=== PATIENT | female | born 1995 | race Caucasian/White ===

== ENCOUNTER 2021-06-03 14:07 | Observation (INO) | payer OTHER, SELFPAY ==
--- NOTE | ~2021-06-03 | US_ITS ---
US OB BPP wo non-stress DATE: 06/03/2021 17:02 INDICATION: heart rate decelerations TECHNIQUE: Real-time imaging and Doppler analysis COMPARISON: None FINDINGS: Live keane intrauterine gestation, fetus in longitudinal lie, vertex presentation. Feta l heart rate of 131 bpm. Fundal placenta. Subjectively normal amount of amniotic fluid. BIOPHYSICAL PROFILE reported by gastrointestinal technician: breathin out of 2 movement: 2 out of 2 tone: 2 out of 2 Amniotic fluid pocket: 2 out of 2 Total score: 8 out of 8 IMPRESSION: Normal biophysical profile of 8 out of 8 Reviewed, dictated and finalized at Location [facility]. Reviewed, dictated and finalized at location A.
[2021-06-03 16:00] VITALS: BP 112/67; PULSE 94
[2021-06-03] MEDS: NIFEdipine 30 MG TAB.ER.24 PO (16:34)
--- NOTE | 2021-06-03 17:42 | OBADM ---
This patient, Mai Ruiz, admitted to the OB room OB Post 117 for observation. Patient/family oriented to hospital policies and general routines including ID bracelet, bed and alarms, visiting hours, pain management, procedures, bathroom and other care routines, personal items, smoking policy, room service/diet, and visiting hours. Patient/Family are encouraged to report perceived risks to care and to ask questions if they do not understand what they are told or what they should do.
--- NOTE | 2021-06-08 07:19 | P.PNOB_ITS ---
OB - Triage/Final Diagnosis Visit Information Date of evaluation: 06/03/21 Reason for evaluation: threatened labor Comments/Additional reasons for admission: I have assessed the risk for this patient, Mai Ruiz, and determined that she would benefit from ob servation care.
== END 2021-06-03 19:15 | disposition home or self-care (01) ==
PROVIDERS: Admitting Provider Obstetrics & Gynecology; PCP Internal Medicine; Visit Provider Obstetrics & Gynecology
DX: O47.03 False labor before 37 completed weeks of gestation, third trimester (principal); Z3A.33 33 weeks gestation of pregnancy
CPT/HCPCS: 76819; A9270; G0378; G0379

== ENCOUNTER 2021-06-25 14:53 | Outpatient (RCR) | payer OTHER, SELFPAY ==
[2021-06-25 15:27] VITALS: BP 123/70; PULSE 112
== END 2021-07-18 07:29 | disposition home or self-care (01) ==
LOC: ANHOBOP 14:53
PROVIDERS: PCP Internal Medicine; Visit Provider Obstetrics & Gynecology
DX: O24.419 Gestational diabetes mellitus in pregnancy, unspecified control (principal); O36.8930 Maternal care for other specified fetal problems, third trimester, not applicable or unspecified; Z3A.36 36 weeks gestation of pregnancy
CPT/HCPCS: 59025

== ENCOUNTER 2021-06-27 06:26 | Inpatient (IN) | payer OTHER, SELFPAY ==
[2021-06-27] VITALS (63 sets, daily range): BP systolic 100–143; BP diastolic 50–102; PULSE 77–158; RESP 16–20; TEMP 36.8–37.3; O2SAT 96–100; BMI 35.7
--- NOTE | 2021-06-27 06:44 | LDADM ---
This patient, Mai Ruiz, was admitted to Labor/Delivery/Recovery 107 on 06/27/21 at 06:26. Plans for labor, pain management and were discussed with patient. Patient/family oriented to hospital policies and general routines including ID bracelet, bed and alarms, visiting hours, pain management, procedures, bathroom and other care routines, personal items, smoking policy, room service/diet and guest tray routines, security routines, and visiting hours. Patient/Family are encouraged to report perceived risks to care and to ask questions if they do not understand what they are told or what they should do. See OBIX for further documentation.
[2021-06-27 07:30] LABS: Glucose Point of Care 83 mg/dl (65-105)
[2021-06-27 07:31] LABS: Basophils Percent Auto 0.3 % (0.2-1.2); Eosinophils Percent Auto 0.5 % (0-4.4); Hematocrit 36.9 % (37.0-47.0); Hemoglobin 12.3 g/dL (12.0-15.0); Immature Granulocyte Absolute 0.03 K/mm3 (0.00-0.031); Immature Granulocyte Percent A 0.4 % (0-0.5); Lymphocytes Absolute Auto 1.79 K/mm3 (0.9-3.2); Lymphocytes Percent Auto 23.3 % (18.3-44.2); Mean Corpuscular HGB Conc 33.3 g/dl (32-36); Mean Corpuscular Hemoglobin 30.8 pg (26-34); Mean Corpuscular Volume 92.5 fl (80-100); Mean Platelet Volume 10.2 fl (7.4-10.4); Monocytes Absolute Auto 0.5 K/mm3 (0.1-0.6); Monocytes Percent Auto 6.5 % (2.6-8.5); Neutrophils Absolute Auto 5.3 K/mm3 (1.3-6.7); Platelet Count Result 191 k/mm3 (150-375); Red Blood Count 3.99 M/mm3 (4.2-5.4); Red Cell Distribution Width 13.9 % (11.5-14.5); White Blood Count 7.7 K/mm3 (4.5-10.0)
[2021-06-27] MEDS: OXYTOCIN 30 UNITS/NS 500 ML 30 UNITS/500 ML BAG IV CONT (07:34)
[2021-06-27] MEDS: LACTATED RINGERS 1,000 ML 125 ML IV CONT (07:34)
--- NOTE | 2021-06-27 07:53 | WPDOBADMIT ---
Obstetrics - Admit Note Admission Note: 25 y/o @ 37 weeks gestation here for induction of labor d/t GHTN. has also been complicated by Cholestasis and diet controlled GDM.Cervix 3/thick/-2. Arom small amount of clear fluid. record reviewed. No pertinent additions to the history and/or any subsequent changes in the physical findings that are not consistent with the expected course of the were found. Additions to the history and/or subsequent changes in the physical findings follow. None.
--- NOTE | 2021-06-27 09:54 | WPDANESEPP ---
Anes - Eval Pre Procedure Date/Time: 06/27/21 09:54 Pre Op Diagnosis: Induction of Labor Patient Data Age: 25 Gender: F Height: 1.7 m Weight: 103.5 kg Last Vital Signs Temp 37.2 C 06/27/21 07:51 Pulse 100 06/27/21 09:46 BP 121/80 06/27/21 09:46 Allergies Allergy/AdvReac Type Severity Reaction Status Date / Time No Known Allergies Allergy Unverified 12/20/18 13:48 Home Medications Medication Instructions Recorded Confirmed Type PNV cmb#95-ferrous fumarate-FA 1 tablet PO DAILY 06/20/21 06/20/21 History [] ferrous sulfate [Iron (ferrous 325 mg PO DAILY 06/20/21 06/20/21 History sulfate)] ursodiol 300 mg PO BID 06/20/21 06/20/21 History Laboratory Tests 06/27/21 06/27/21 06/27/21 07:17 07:19 07:19 WBC 7.7 K/mm3 K/mm3 (4.5-10.0) RBC 3.99 M/mm3 L M/mm3 (4.2-5.4) Hgb 12.3 g/dL g/dL (12.0-15.0) Hct 36.9 % L % (37.0-47.0) MCV 92.5 fl fl (80-100) MCH 30.8 pg pg (26-34) MCHC 33.3 g/dl g/dl (32-36) RDW 13.9 % % (11.5-14.5) Plt Count 191 k/mm3 k/mm3 (150-375) MPV 10.2 fl fl (7.4-10.4) Immature Gran % (Auto) 0.4 % % (0-0.5) Neut % (Auto) 69.0 % % (45.5-73.1) Lymph % (Auto) 23.3 % % (18.3-44.2) Gillespie % (Auto) 6.5 % % (2.6-8.5) Eos % (Auto) 0.5 % % (0-4.4) Baso % (Auto) 0.3 % % (0.2-1.2) Lymph # (Auto) 1.79 K/mm3 K/mm3 (0.9-3.2) Gillespie # (Auto) 0.5 K/mm3 K/mm3 (0.1-0.6) Eos # (Auto) 0.0 K/mm3 K/mm3 (0-0.3) Baso # (Auto) 0.0 K/mm3 K/mm3 (0.0-0.1) Abs Immat Gran (auto) 0.03 K/mm3 K/mm3 (0.00-0.031) Absolute Neuts (auto) 5.3 K/mm3 K/mm3 (1.3-6.7) Absolute Nucleated RBC 0.0 K/mm3 K/mm3 (0.0-0.012) Nucleated RBC % 0.0 % % (0.0-0.2) POC Capillary Glucose 83 mg/dl mg/dl (65-105) RPR Pending Blood Type Antibody Screen 06/27/21 07:19 WBC RBC Hgb Hct MCV MCH MCHC RDW Plt Count MPV Immature Gran % (Auto) Neut % (Auto) Lymph % (Auto) Gillespie % (Auto) Eos % (Auto) Baso % (Auto) Lymph # (Auto) Gillespie # (Auto) Eos # (Auto) Baso # (Auto) Abs Immat Gran (auto) Absolute Neuts (auto) Absolute Nucleated RBC Nucleated RBC % POC Capillary Glucose RPR Blood Type O Positive Antibody Screen Negative Patient hx anesthesia problems: none Family hx anesthesia problems: none PMFSH Past Medical History Medical History (Updated 06/27/21 @ 09:57 by Orquidea Moeller CRNA) Cholestasis Diabetes in Hypertension Obese Family History Family History Grandparent Family history of primary malignant neoplasm of liver Family history of Alzheimer's disease Mother Patient's mother is in good health Social History Social History Smoking status: Never smoker Alcohol intake: current Substance use: never Spiritual care concerns: No Exam Day of Procedure 06/27/21 09:54 Patient weight: obese Heart: regular rate and rhythm Lungs: normal air movement Airway: Mallampati scale class II Neurological: alert and oriented
[2021-06-27 09:56] LABS: Glucose Point of Care 107 mg/dl (65-105)
--- NOTE | 2021-06-27 12:18 | PM.OBPRVD ---
OB - Delivery Note Procedure Delivery date: 06/27/21 events: Gestational Diabetes and Induced HTN Intrapartal events: None Induction method: per pitocin protocol Delivery monitor: external FHT and external uterine Route of delivery: Episiotomy description: None Laceration Description: Perineal - 2nd Degree Delivery repair: vicryl Specimen: Yes Quantitative Blood Loss (ml): 181 Anesthesia type: Epidural [place] Baby Date of : 06/27/21 Time of : 11:49 Weeks of gestation at delivery: 37 gender: Female presentation: vertex position: Left Occiput Anterior Placenta delivery description: Spontaneous cord vessel description: Delayed Cord Clamping Narrative: Mother and baby in stable condition. Cord gasses collected and handed off to staff.
[2021-06-27] MEDS: OXYTOCIN 30 UNITS/NS 500 ML 30 UNITS/500 ML BAG 125 UNITS IV CONT (12:40)
[2021-06-27] MEDS: BENZOCAINE 20% AER SPR (*SP) 56 GM CAN 1 SPRAY TOPICAL (14:26)
[2021-06-27] MEDS: WITCH HAZEL 40 PADS 1 PAD TOPICAL (14:26)
--- NOTE | 2021-06-27 14:30 | PC.NURSE ---
Patient transferred to post room # 285 per wheelchair. Support person present. Oriented to unit, room, information board, rooming in, admission packet and security measures. Patient verbalizes understanding.
[2021-06-27] MEDS: IBUPROFEN 600 MG TABLET PO ×2 (16:54→22:35)
[2021-06-27] MEDS: LANOLIN (LANSINOH) 7.5 GM CREAM 1 APPLIC TOPICAL (16:55)
[2021-06-27] MEDS: DOCUSATE SODIUM 100 MG CAPSULE PO (16:55)
[2021-06-28] VITALS (8 sets, daily range): BP systolic 100–120; BP diastolic 63–81; PULSE 71–83; RESP 13–18; TEMP 36.5–37.3; O2SAT 97–100
[2021-06-28] MEDS: ACETAMINOPHEN 325 MG TABLET 650 MG PO ×2 (00:14→09:56)
[2021-06-28] MEDS: IBUPROFEN 600 MG TABLET PO ×3 (04:37→21:02)
[2021-06-28 05:18] LABS: Hemoglobin 11.2 g/dL (12.0-15.0)
[2021-06-28 05:38] LABS: Glucose 78 mg/dL (65-110)
--- NOTE | 2021-06-28 07:46 | PM.OBPNVD ---
OB - PN: Subj Subjective Date/time seen: 06/28/21 07:46 Patient comments: no complaints baby status: doing well OB - PN: Obj Data Labs CBC & Chem 7: 06/28/21 04:30 06/28/21 04:30 Labs: Laboratory Results - last 24 hr 06/27/21 06/27/21 06/28/21 07:19 09:47 04:30 Hgb 11.2 L Hct 35.0 L Glucose POC Capillary Glucose 107 H Blood Type O Positive Antibody Screen Negative 06/28/21 04:30 Hgb Hct Glucose 78 POC Capillary Glucose Blood Type Antibody Screen OB - PN A/P Plan day: 1 Plan: routine care Time Spent With Patient Time: Total time spent is greater than 50% in coordination of care (as documented) at patient's floor/unit and/or counseling patient: Time with patient: less than 15 minutes Review of Systems Review of Systems: All systems reviewed & are unremarkable except as noted in HPI and below Exam Narrative: Fundus firm and vaginal flow controlled. No lower ext redness, warmth, or edema. Negative homans. Denies h/a, v/d or e/p. Reflexes normal. Const: General: comfortable Chest: Breast/axilla inspection: normal inspection of the breasts Resp: Effort & Inspection: normal respiratory effort Cardio: Rate: regular rate GI: GI Palp: Yes Soft to palpation Psych: Appearance: grossly normal Affect: normal affect Attitude: cooperative Thought content: Yes Normal thought content present Judgement: Good judgement present (Psych)
[2021-06-28 09:46] LABS: Rapid Plasma Reagin Non-Reactive (NonReactive)
[2021-06-28] MEDS: WITCH HAZEL 40 PADS 1 PAD TOPICAL (09:56)
[2021-06-28] MEDS: LANOLIN (LANSINOH) 7.5 GM CREAM 1 APPLIC TOPICAL (09:57)
[2021-06-28] MEDS: DOCUSATE SODIUM 100 MG CAPSULE PO (09:57)
[2021-06-28] MEDS: MULTIVIT/MIN/PREN/FOL AC/IRON TABLET 1 TAB PO (09:57)
--- NOTE | 2021-06-28 10:15 | PC.NURSE ---
Mother called out for assist with feeding, reporting tenderness with latch. . is able to freely thrust tongue past gum ridge and flange both lips. Skin is intact on both nipples, redness noted bilaterally and a small ridge line from shallow latching. Nipple care reviewed of lanolin after feedings, warm compresses as needed. Reviewed feeding cues, frequencies, duration of feedings, feeding elimination flow sheet, and signs of adequate intake. Demonstrated stimulation techniques to wake infant for feeding. Assisted with to breast. Reviewed positioning/alignment in cross cradle, holding breast in ?U? hold and guided asymmetrical latch on. Reviewed rational for each. Infant able to latch correctly within a few attempts. Infant nursed eagerly with steady draws and occasional swallowing noted, some pausing noted. Reviewed signs of a correct latch, effective nursing and suck swallow ratio. Suggested mother stimulate while feeding to increase stimulate, increase intake and to assist with maintaining deep latch. would slip to shallow latch causing tenderness. Demonstrated how to adjust latch more deeply while feeding if needed. Mother reports she can feel the difference in latch with no/less tenderness. Instructed mother to call out for RN assistance if she is unable to latch infant for feeding or she has discomfort with nursing. Instructed feeding should be initiated three hours from start of last feeding or if feeding cues are noted before. Mother voiced understanding of information shared.
--- NOTE | 2021-06-28 10:49 | WPDANLDPN2 ---
Anes-Prog Note L&D Date/Time: 06/28/21 10:49 Comfortable throughout: labor and delivery Neuraxial method: epidural Epidural/Spinal procedure site: clean & non-tender Neuro status: Neuro function grossly intact. Cardiovascular status: normal Respiratory status: normal Airway patency: baseline Mental status: baseline Post-Op hydration status: normal Vital Signs: Last Vital Signs Temp 37.3 C 06/28/21 07:40 Pulse 71 06/28/21 07:40 Resp 18 06/28/21 07:40 BP 111/73 06/28/21 07:40 Pulse Ox 100 06/28/21 07:40 Pain score (VAS): 0 I/O: Intake & Output 06/27/21 06/28/21 06/28/21 23:59 07:59 15:59 Intake Total 600 800 Output Total 1000 Balance 600 -200 Post-procedural complaints: none Patient feedback: Patient satisfied with anesthetic care.
[2021-06-29 00:50] VITALS: BP 119/78; PULSE 75; RESP 12; TEMP 36.5; O2SAT 100
[2021-06-29 05:00] VITALS: BP 116/70
--- NOTE | 2021-06-29 07:39 | PM.OBPNVD ---
OB - PN: Subj Subjective Date/time seen: 06/29/21 07:39 Patient comments: no complaints baby status: doing well OB - PN: Obj Data Labs CBC & Chem 7: 06/28/21 04:30 06/28/21 04:30 Labs: Laboratory Results - last 24 hr 06/27/21 07:19 RPR Non-reactive OB - PN A/P Plan day: 2 Plan: routine care and discharge home Time Spent With Patient Time: Total time spent is greater than 50% in coordination of care (as documented) at patient's floor/unit and/or counseling patient: Review of Systems Review of Systems: All systems reviewed & are unremarkable except as noted in HPI and below Exam Const: General: cooperative and healthy appearing Orientation/consciousness: oriented to person and patient oriented x3 Psych: Thought process: Normal thought process present Thought content: Yes Normal thought content present Judgement: Good judgement present (Psych)
--- NOTE | 2021-06-29 07:40 | PM.OBDSVD ---
DS: Admitting Diagnosis Discharge Date 06/29/2021 Admitting Diagnosis labor OB - DS: Summary OB Procedures : None OB Procedures Intrapartum: Spontaneous Vag Delivery OB Procedures: : None Time Spent with Patient Time attestation: Total time spent providing and/or coordinating discharge services: DS: Data Data Completed and Pending Pending studies at discharge: Pending at discharge 06/27/21 13:04 Surgical [PTH] Routine Labs on day of discharge: Labs from last 24 hours 06/27/21 07:19 RPR Non-reactive Discharge Plan Discharge Attending physician on discharge: Kehinde Sanchez Consulting providers: Rupal Parks ; Fauzia Coelho Discharging Clinician: Fauzia Coelho Patient Disposition: Home, Self-Care Activity: pelvic rest Diet: regular Discharge Instructions: Education: Mom and Baby Guide Given to: Mother Follow-Up: Call your delivering provider's office for an appointment to be seen in: 1 Week Mom and baby should come to the [facility] for the follow-up appointment. Appointment Date/Time: July 02, 2021 at 11:00 am What to expect at your follow-up visit: Blood Pressure Check Call [phone] if you are unable to keep your appointment time. BREAST CARE: * Wear a snug supportive bra. * For engorgement discomfort: Breast Feeding: * Apply warm moist washcloths * Express milk as needed to relieve engorgement * Wear loose clothing Bottle Feeding: * May apply ice packs * For sore nipples: * Identify correct latch-on * Apply warm moist washcloths before and after nursing * Air dry nipples after nursing * May apply Lansinoh cream to nipples PERINEAL CARE: * Until bleeding stops, use your garfield bottle after urinating * Change your pad frequently throughout the day * You may take sitz baths several times a day (fill your bathtub with warm water and soak for 20 minutes.) Do NOT bathe in the water * No tub baths until seen by your physician - You may shower ACTIVITY: * Rest as much as possible. * Do not exercise or lift anything heavier than your baby (such as laundry or other children.) * Avoid stairs or driving as much as possible. * Do not put anything into the vagina. No douching, tampons, or sexual activity until seen by physician. NOTIFY PHYSICIAN IF YOU HAVE ANY QUESTIONS OR IF ANY OF THE FOLLOWING SYMPTOMS OCCUR: * If your perineum becomes red, swollen, or more painful than what you have experienced in the hospital. * If your vaginal bleeding becomes foul smelling. * If your vaginal bleeding becomes more heavy than a period or if your bleeding changes from pink to bright red. However, you may pass an occasional walnut-sized clot once or twice for the first week . * If you experience a sharp, shooting pain in you calves. * If you discover a hard, reddened area on your breast or if you experience flu-like symptoms. * If you have a fever of 100.4 or greater DIET: * Eat regular, well-balanced meals. * Drink plenty of fluids daily. If , drink to thirst. Patient Instructions: Antibiotic Form Stand Alone Forms: General Discharge Information Follow-up/Referrals: Rupal Parks CNM [Certified Nurse Gymnastics Instructor] - 4 Weeks Discharge Medications: New acetaminophen [Mapap (acetaminophen)] 325 mg Tablet 650 mg PO Q6H PRN (Reason: Mild Pain (1-3) Or Headache) RF: 0 Dermoplast (with menthol) 20-0.5 % Aerosol 1 spray topical PRN PRN (Reason: Perineal Discomfort) RF: 0 dibucaine 1 % Ointment 1 applic topical PRN PRN (Reason: Hemorrhoids) RF: 0 docusate sodium 100 mg Capsule 100 mg PO BID PRN (Reason: Constipation) RF: 0 ibuprofen 600 mg Tablet 600 mg PO Q6H PRN (Reason: Cramping) RF: 0 Preparation H (Timoteo Downey) 50 % Pads, Medicated 1 pad topical PRN PRN (Reason: Perineal D
--- NOTE | 2021-06-29 08:00 | PC.NURSE ---
PT introductions made and plan of care discussed per post , pain ,management, breast feeding, daily care activities and pending discharge to home. PT and spouse both recipients of such instructions and education through out the shift. No barriers to learning identified. PT received such instructions per one to one discussion, mom baby care guide and demonstrations. PT verbalized understanding of such care.
[2021-06-29 08:30] VITALS: PULSE 84; RESP 18; O2SAT 99
[2021-06-29] MEDS: DOCUSATE SODIUM 100 MG CAPSULE PO (08:42)
[2021-06-29] MEDS: MULTIVIT/MIN/PREN/FOL AC/IRON TABLET 1 TAB PO (08:42)
[2021-06-29] MEDS: IBUPROFEN 600 MG TABLET PO (08:43)
[2021-06-29 09:14] VITALS: BP 111/74; PULSE 84; RESP 18; TEMP 36.5; O2SAT 99
--- NOTE | 2021-06-29 09:15 | PC.NURSE ---
Consult with pt., mother is able to independently latch infant with appropriate positioning/alignment with slight tenderness which she feels is improving with deeper latch. Mother has small red areas to both nipples from shallow latch, which is healing well from previous day. Mother reports infant eagerly latches on first attempt with nursing consistently while at breast. Mother is feeding as required and waking to feed if needed. has had at least 8 effective feedings in the past 24 hours, and is currently meeting outcomes for weight, output, jaundice and feeding frequencies. Mother states she feels confident to continue effective at home. Reviewed transition to breast milk, signs of adequate intake, and engorgement/relief. Instructed to call ICP if intake/output less than required. Reviewed regular medications mother is taking. Information provided per Melanie. Reviewed community resources on the [employer] website and in the Mom/Baby guide. Information on outpatient services provided. Mother has no further questions at this time. Offered to assist mother with next feeding due to nipple tenderness. Stressed good nipple care of lanolin and warm compresses to nipples several times per day until resolved. Instructed feeding should be initiated three hours from start of last feeding or if feeding cues are noted before until seen by ICP. Mother voiced understanding of information shared.
--- NOTE | 2021-06-29 10:15 | PC.NURSE ---
Patient viewed the discharge video Mother & Baby Care, The First Two Weeks . Patient was given the opportunity and encouraged to ask questions. Patient verbalized understanding of information shared and has been given the mother/baby guide for home reference. PT received discharge instructions per protocol and verbalized understanding of such instructions.
--- NOTE | 2021-06-29 10:48 | PC.NURSE ---
PT discharged to home ambulatory accompanied by spouse and and taken to waiting car. Follow up appts confirmed
--- NOTE | 2021-06-29 12:16 | PCCCNOTE ---
Care Coordination: Recvd referral regarding pt. testing Positive for THC in December. Pt. was not urine drug screened upon admission here. Baby's UDS was negative and meconium is pending. Pt. reports she has not used since her positive drug test. Pt. reports she and will live with GOPAL Aranda(who is at bedside) and their 2.5 year old son at home in [place]. Pt. reports they have support from both sides of their families. Pt. reports having all necessary baby supplies and not lacking anything. Pt. reports they are both working and overly resourced to qualify for WIC or Food [place]. Pt. denies any prior involvement with DCFS. resources provided. KYREE arce.
[2021-07-02 11:25] VITALS: BP 135/85; PULSE 88; RESP 20; TEMP 36.6; O2SAT 99
== END 2021-06-29 10:48 | disposition home or self-care (01) | DRG 805 ==
LOC: ANHLDR 06:31 → ANHOB2 14:39
PROVIDERS: Advanced Practice Midwife; Admitting Provider Obstetrics & Gynecology; PCP Internal Medicine; Visit Provider Obstetrics & Gynecology
DX: O13.4 Gestational [pregnancy-induced] hypertension without significant proteinuria, complicating childbirth (principal); K83.1 Obstruction of bile duct; Z37.0 Single live birth; Z3A.37 37 weeks gestation of pregnancy; O24.420 Gestational diabetes mellitus in childbirth, diet controlled; O70.1 Second degree perineal laceration during delivery; O99.214 Obesity complicating childbirth; E66.9 Obesity, unspecified; O26.62 Liver and biliary tract disorders in childbirth
CPT/HCPCS: 36415; 82947; 82948; 85014; 85018; 85025; 86592; 86850; 86900; 86901; 88307; A9270; J2590; J2795; J7120

== ENCOUNTER 2021-08-13 14:50 | Observation (INO) | payer OTHER, SELFPAY ==
--- NOTE | ~2021-08-13 | US_ITS ---
US right upper quadrant INDICATION: Right upper quadrant pain PROCEDURE: Realtime right upper abdominal ultrasound. COMPARISON: No prior studies for comparison. FINDINGS: The pancreas is normal without focal mass or pancreatic ductal dilation. Liver echotexture is normal without focal mass or intrahepatic biliary dilatation. There is normal directional flow i n the portal vein. There are gallstones. There is subtle gallbladder wall thickening with pericholecystic fluid. Common bile duct measures 4 mm. Positive sonographic Rodrigues's sign. IMPRESSION: 1: Cholelithiasis with mild gallbladder wall thickening and pericholecystic fluid. Positive sonograph ic Rodrigues's sign. This constellation of findings is compatible with acute cholecystitis. Clinically c orrelate. Reviewed, dictated and finalized at location A. IMPRESSION: 1: Cholelithiasis with mild gallbladder wall thickening and pericholecystic flu id. Positive sonographic Rodrigues's sign. This constellation of findings is michael tible with acute cholecystitis. Clinically correlate.
[2021-08-13 14:52] VITALS: RESP 17
[2021-08-13 14:56] VITALS: BP 147/91; PULSE 69; RESP 18; TEMP 36.8; O2SAT 99
--- NOTE | 2021-08-13 15:17 | ECG_ITS ---
Measurements Intervals [place] Rate: 66 P: 10 AR: 127 QRS: 32 QRSD: 86 T: 18 QT: 415 QTc: 438 Interpretive Statements SINUS RHYTHM BASELINE WANDER- III, AVF NORMAL ECG Electronically Signed On 08-13-2021 15:59:45 CDT by Mynor Ansari D.O.
[2021-08-13] MEDS: SODIUM CHLORIDE 0.9% IV 1,000 ML 999 ML IV CONT (15:43)
[2021-08-13 15:51] LABS: Basophils Percent Auto 0.3 % (0.2-1.2); Eosinophils Percent Auto 0.5 % (0-4.4); Hematocrit 40.5 % (37.0-47.0); Hemoglobin 13.4 g/dL (12.0-15.0); Immature Granulocyte Absolute 0.03 K/mm3 (0.00-0.031); Immature Granulocyte Percent A 0.3 % (0-0.5); Lymphocytes Absolute Auto 2.89 K/mm3 (0.9-3.2); Lymphocytes Percent Auto 33.6 % (18.3-44.2); Mean Corpuscular HGB Conc 33.1 g/dl (32-36); Mean Corpuscular Hemoglobin 30.5 pg (26-34); Mean Platelet Volume 10.7 fl (7.4-10.4); Monocytes Absolute Auto 0.4 K/mm3 (0.1-0.6); Monocytes Percent Auto 4.9 % (2.6-8.5); Neutrophils Absolute Auto 5.2 K/mm3 (1.3-6.7); Neutrophils Percent Auto 60.4 % (45.5-73.1); Platelet Count Result 213 k/mm3 (150-375); Red Cell Distribution Width 13.5 % (11.5-14.5); White Blood Count 8.6 K/mm3 (4.5-10.0)
--- NOTE | 2021-08-13 16:01 | ED.BACK ---
HPI - Back Pain/Injury General Chief Complaint: Back Pain/Injury Stated Complaint: BACK PAIN Time Seen by Provider: 08/13/21 15:10 Source: patient History of Present Illness HPI Narrative: Patient presents with sudden onset upper back pain around 11:00 today. Pain was sharp, constant, no clear aggravating or alleviating factors. She reports her pain was associated with upper abdominal pain as well. She denies fevers, cough, congestion. She reports she is feeling much improved continues to have upper abdominal pain. She denies any nausea vomiting or diarrhea. Reports she gave 6 weeks ago had a history of gestational diabetes and hypertension denies prior abdominal surgeries. Related Data Home Medications Medication Instructions Recorded Confirmed No Home Medications 08/13/21 08/13/21 Allergies Allergy/AdvReac Type Severity Reaction Status Date / Time No Known Allergies Allergy Unverified 08/13/21 14:57 Review of Systems Review of Systems: CONSTITUTIONAL: Denies fever, chills, or sweats. EYES: Denies visual changes, redness, or discharge. ENT: Denies rhinorrhea, congestion, sore throat, or otalgia. CARDIOVASCULAR: Denies chest pain, palpitations, or edema. RESPIRATORY: Denies cough or dyspnea. GASTROINTESTINAL: Denies nausea, vomiting, or diarrhea. GENITOURINARY: Denies dysuria or hematuria. SKIN: Denies rash or itching. MUSCULOSKELETAL: Denies joint pain, or myalgia. NEUROLOGIC: Denies headache, numbness, dizziness, or weakness. PSYCHIATRIC: Denies anxiety or depression. All systems reviewed & are unremarkable except as noted in HPI and below PMFSH Past Medical History Medical History Cholestasis Diabetes in Hypertension Obese Family History Family History Grandparent Family history of primary malignant neoplasm of liver Family history of Alzheimer's disease Mother Patient's mother is in good health Social History Social History Smoking status: Never smoker Alcohol intake: current Drinks per week: 4 Substance use: current Substance use type: marijuana Last use: 08/12/21 Spiritual care concerns: No Exam Narrative: GENERAL: Well-appearing, well-nourished, and in no acute distress. HEAD: Normocephalic, atraumatic. EYES: PERRLA and EOMI. ENT: Nares clear, no rhinorrhea or epistaxis. Mucous membranes moist. NECK: Supple. No masses. No JVD CHEST: Clear to auscultation. No respiratory distress. No wheezes rales or rhonchi HEART: Regular rate and rhythm. No murmur heard. Normal peripheral pulses. ABDOMEN: Moderate tenderness in the right upper quadrant no rebound or guarding no Rodrigues's soft, nondistended, normal active bowel sounds. BACK: No focal areas of tenderness no rash no focal bony tenderness no deformities EXTREMITIES: Normal range of motion. No edema. SKIN: Warm, dry, no rash. NEURO: No focal deficits. Alert and oriented x3. PSYCH: Normal mood and affect. Course Reevaluation(s) Reevaluation #1: Image findings discussed with patient there is continued concern for cholecystitis versus outpatient management versus inpatient management. Patient reports she has increased pain since her ultrasound and would prefer operative management sooner rather than later. Discussed case with Dr. Owen who is comfortable with inpatient plan. Date: 08/13/21 Time: 16:35 Vital Signs Vital signs: Vital Signs Respiratory Rate 17 08/13/21 14:52 Temperature 36.5 C 08/13/21 17:30 Pulse Rate 78 08/13/21 17:30 Respiratory Rate 16 08/13/21 17:30 Blood Pressure 141/76 H 08/13/21 17:30 Pulse Oximetry 99 08/13/21 17:30 MDM - Back Pain/Injury MDM Narrative Medical decision making narrative: Patient presented with upper back pain and associated abdominal pain. Exam notable for right upper qu
[2021-08-13 16:03] LABS: Alanine Aminotransferase 39 U/L (4-35); Albumin Level 4.6 g/dL (3.5-5.1); Alkaline Phosphatase 73 U/L (38-126); Anion Gap 10 mmol/L (8-16); Aspartate Amino Transferase 68 U/L (14-36); Bilirubin,Total 0.2 mg/dL (0.2-1.3); Blood Urea Nitrogen 24 mg/dL (7-17); Calcium 10.4 mg/dL (8.4-10.2); Carbon Dioxide 29 mmol/L (22-30); Chloride 101 mmol/L (98-107); Estimated CRCL calculation 83 ml/min; Estimated Glomerular Filt Rate > 60; Glucose 92 mg/dL (65-110); Lipase 157 U/L (23-300); Potassium 4.2 mmol/L (3.4-5.0); Sodium 140 mmol/L (137-145)
[2021-08-13 16:17] LABS: Add Urine Microscopic? NO; Appearance Urine Clear (Clear); Bilirubin Urine Negative (Negative); Blood Urine Negative (Negative); Color Urine Yellow (Yellow); Glucose Urine UA Negative (Negative); Ketones Urine Negative (Negative); Leukocyte Esterase Ur Negative LEU/UL (Negative); Nitrate Urine Negative (Negative); Protein Urine Negative (Negative); Specific Grav Ur 1.018 (1.001-1.035); Urobilinogen Urine Negative mg/dL (<2.0)
[2021-08-13] MEDS: MORPHINE SULFATE (*CRX) 4 MG/ML INJ IV PUSH ×2 (16:46→20:19)
[2021-08-13 17:30] VITALS: BP 141/76; PULSE 78; RESP 16; TEMP 36.5; O2SAT 99
[2021-08-13 17:31] VITALS: BMI 33.9
--- NOTE | 2021-08-13 17:38 | ADMGEN ---
This patient, Mai Ruiz, was admitted to [facility] Surg Room 313-01. Patient/family oriented to hospital policies and general routines including ID bracelet, bed and alarms, visiting hours, pain management, procedures, bathroom and other care routines, personal items, smoking policy, room service/diet, and visiting hours. Information on how to activate the Rapid Response Team has been discussed. Patient/Family are encouraged to report perceived risks to care and to ask questions if they do not understand what they are told or what they should do.
[2021-08-13] MEDS: SODIUM CHLORIDE 0.9% IV 1,000 ML 125 ML IV CONT (18:13)
[2021-08-13 22:00] VITALS: BP 127/87; PULSE 71; RESP 18; TEMP 36.1; O2SAT 99
[2021-08-14] MEDS: MORPHINE SULFATE (*CRX) 4 MG/ML INJ IV PUSH ×4 (00:53→20:42)
[2021-08-14] MEDS: SODIUM CHLORIDE 0.9% IV 1,000 ML 125 ML IV CONT ×2 (02:40→10:26)
[2021-08-14 06:00] VITALS: BP 132/90; PULSE 64; RESP 18; TEMP 36.1; O2SAT 100
[2021-08-14] MEDS: ONDANSETRON INJ 4 MG/2 ML VIAL IV PUSH ×3 (08:50→18:31)
--- NOTE | 2021-08-14 12:35 | PM.IMHP ---
H&P: HPI History of Present Illness Date/Time: 08/14/21 12:35 Chief Complaint: Right upper quadrant pain Narrative: This is a 25-year-old woman who presented to the emergency department on 08/13/2021 with her upper quadrant pain that started earlier morning. She states that she does not recall any certain food that she ate cause this. She had 1 minor episode like this about 1 week ago but it only lasted for about 30 minutes. She has had constant pain since this began yesterday. She did have some nausea but denies any vomiting. She denies any change in bowel habits or any dysuria. Her pain does radiate around to her right back. She just recently had a baby about 1 month ago and states that she did have cholestasis during her , but otherwise was uncomplicated. Gallbladder ultrasound in the emergency department showed evidence of cholelithiasis and mild gallbladder wall thickening with positive sonographic Rodrigues sign. Her pain was not able to be controlled in the emergency department, therefore she was admitted for further treatment. Review of Systems Review of Systems: All systems reviewed & are unremarkable except as noted in HPI and below Constitutional: Constitutional: Denies chills and Denies fever(s) Eyes: Eyes: Denies change in vision ENT: Denies hearing loss, Denies neck pain and Denies sore throat Cardiovascular: Cardiovascular: Denies chest pain and Denies dyspnea Respiratory: Respiratory: Denies cough, Denies dyspnea and Denies wheezing Gastrointestinal: Gastrointestinal: Reports as per HPI Genitourinary: Genitourinary: Denies hematuria and Denies dysuria Musculoskeletal: Musculoskeletal: Denies arthralgias, Denies joint swelling and Denies neck pain Allergic/Immunologic: Allergic/Immunologic: Denies wheezing [facility] Past Medical History Medical History Cholestasis Diabetes in Hypertension Obese Family History Family History Grandparent Family history of primary malignant neoplasm of liver Family history of Alzheimer's disease Mother Patient's mother is in good health Social History Social History Smoking status: Never smoker Alcohol intake: current Drinks per week: 4 Substance use: current Substance use type: marijuana Last use: 08/12/21 Spiritual care concerns: No Meds Home Medications and Allergies Home Medications Medication Instructions Recorded Confirmed Type No Home Medications 08/13/21 08/13/21 History Allergies Allergy/AdvReac Type Severity Reaction Status Date / Time No Known Allergies Allergy Unverified 08/13/21 14:57 Vital Signs Vital Signs - 24 hr 08/13/21 14:52 08/13/21 14:56 08/13/21 17:30 Temperature 36.8 C 36.5 C Pulse Rate 69 78 Respiratory Rate 17 18 16 Blood Pressure 147/91 H 141/76 H Pulse Oximetry 99 99 08/13/21 22:00 08/14/21 06:00 Temperature 36.1 C L 36.1 C L Pulse Rate 71 64 Respiratory Rate 18 18 Blood Pressure 127/87 132/90 Pulse Oximetry 99 100 Exam Const: General: alert; No acute distress Orientation/consciousness: patient oriented x3 Limitations: no limitations HENMT: Head: normocephalic and atraumatic Ears: hearing grossly normal bilaterally General nose exam: Normal external nose present and Normal nares present Mouth: Yes Normal oral and palatal mucosa present and Yes moist mucous membranes Eyes: General: appearance normal, both eyes and all related structures Conjunctivae: conjunctivae normal Sclera: sclerae normal Pupils: Equal, round and reactive pupils present EOM: EOMs intact bilaterally Neck: Neck: normal visual inspection, full ROM, no lymphadenopathy, supple and no JVD Lymphatic: no lymphadenopathy noted Chest: Chest palpation & inspection: normal inspection of the chest Resp: Effort & In
[2021-08-14 14:00] VITALS: BP 141/83; PULSE 57; RESP 18; TEMP 36.7; O2SAT 99
[2021-08-14] MEDS: SODIUM CHLORIDE 0.9% IV 1,000 ML 75 ML IV CONT (20:42)
[2021-08-14 21:28] VITALS: BP 121/76; PULSE 50; RESP 18; TEMP 36.6; O2SAT 100
[2021-08-15] VITALS (9 sets, daily range): BP systolic 123–148; BP diastolic 75–93; PULSE 55–78; RESP 13–20; TEMP 36.1–37.3; O2SAT 92–100
[2021-08-15] MEDS: ONDANSETRON INJ 4 MG/2 ML VIAL IV PUSH (02:51)
[2021-08-15 05:53] LABS: Hematocrit 37.2 % (37.0-47.0); Hemoglobin 12.3 g/dL (12.0-15.0); Mean Corpuscular HGB Conc 33.1 g/dl (32-36); Mean Corpuscular Hemoglobin 29.8 pg (26-34); Mean Corpuscular Volume 90.1 fl (80-100); Mean Platelet Volume 10.4 fl (7.4-10.4); Platelet Count Result 211 k/mm3 (150-375); Red Blood Count 4.13 M/mm3 (4.2-5.4); Red Cell Distribution Width 13.5 % (11.5-14.5); White Blood Count 6.4 K/mm3 (4.5-10.0)
[2021-08-15 06:07] LABS: Alanine Aminotransferase 280 U/L (4-35); Albumin Level 4.1 g/dL (3.5-5.1); Alkaline Phosphatase 80 U/L (38-126); Amylase 60 U/L (30-110); Aspartate Amino Transferase 227 U/L (14-36); Bilirubin,Total 0.6 mg/dL (0.2-1.3); Lipase 109 U/L (23-300)
--- NOTE | 2021-08-15 09:27 | WPDHPUPDATE1 ---
History and Physical Update Update Date/Time: 08/15/21 09:27 History and Physical has been reviewed, including an updated exam of the patient. There are NO changes in the patient's condition. Risks, benefits, and alternatives have been discussed and questions answered. Patient agrees to proceed with procedure.
[2021-08-15] MEDS: LACTATED RINGERS 1,000 ML 30 ML IV CONT (09:30)
--- NOTE | 2021-08-15 09:38 | WPDANESEPPF ---
Anes - Initial Pre Proc Eval Procedure: Operation Date: 08/15/21 10:00 Proposed Procedures p Laparoscopic Cholecystectomy, Possible Open - Paula Whiting MD Date/Time: 08/15/21 09:38 Surgeon: Tito Conti DO Pre Op Diagnosis: abdominal pain Patient Data Age: 25 Gender: F Height: 1.73 m Weight: 101.1 kg Last Vital Signs Temp 37.3 C 08/15/21 05:59 Pulse 55 L 08/15/21 05:59 Resp 18 08/15/21 05:59 BP 123/80 08/15/21 05:59 Pulse Ox 100 08/15/21 05:59 Allergies Allergy/AdvReac Type Severity Reaction Status Date / Time No Known Allergies Allergy Unverified 08/13/21 14:57 Home Medications Medication Instructions Recorded Confirmed Type No Home Medications 08/13/21 08/13/21 History Laboratory Tests 08/15/21 08/15/21 08/15/21 05:27 05:27 05:27 WBC 6.4 K/mm3 K/mm3 (4.5-10.0) RBC 4.13 M/mm3 L M/mm3 (4.2-5.4) Hgb 12.3 g/dL g/dL (12.0-15.0) Hct 37.2 % % (37.0-47.0) MCV 90.1 fl fl (80-100) MCH 29.8 pg pg (26-34) MCHC 33.1 g/dl g/dl (32-36) RDW 13.5 % % (11.5-14.5) Plt Count 211 k/mm3 k/mm3 (150-375) MPV 10.4 fl fl (7.4-10.4) Total Bilirubin 0.6 mg/dL mg/dL (0.2-1.3) Direct Bilirubin 0.0 mg/dL mg/dL (0-0.3) AST 227 U/L H U/L (14-36) ALT 280 U/L H U/L (4-35) Alkaline Phosphatase 80 U/L U/L (38-126) Total Protein 7.0 g/dL g/dL (6.3-8.2) Albumin 4.1 g/dL g/dL (3.5-5.1) Amylase 60 U/L U/L (30-110) Lipase 109 U/L U/L (23-300) Beta HCG, Quant Blood Type O Positive Antibody Screen Negative 08/15/21 05:27 WBC RBC Hgb Hct MCV MCH MCHC RDW Plt Count MPV Total Bilirubin Direct Bilirubin AST ALT Alkaline Phosphatase Total Protein Albumin Amylase Lipase Beta HCG, Quant Pending Blood Type Antibody Screen Patient hx anesthesia problems: none Family hx anesthesia problems: none Results Review: All pre-operative results and documents have been reviewed as part of the pre-operative evaluation. [facility] Past Medical History Medical History (Updated 08/15/21 @ 09:39 by Alfonzo Al MD) Cholestasis Diabetes in Ganglion cyst of both wrists Obese Family History Family History Grandparent Family history of primary malignant neoplasm of liver Family history of Alzheimer's disease Mother Patient's mother is in good health Social History Social History Smoking status: Never smoker Alcohol intake: current Drinks per week: 4 Substance use: current Substance use type: marijuana Last use: 08/12/21 Spiritual care concerns: No Anes - Eval Final PreProcedure Day of Procedure 08/15/21 09:38 Patient weight: obese Heart: regular rate and rhythm Lungs: clear to auscultation Airway: Mallampati scale class II Neurological: alert and oriented Last oral intake: >/= 8 hours ASA classification: II Emergent: no Anesthetic plan: proceed Anesthesia type and monitoring: general ETT and standard monitoring Results Review: All pre-operative results and documents have been reviewed as part of the pre-operative evaluation. Informed Consent: The patient's anesthetic plan and its attendant risks and benefits were discussed with the patient/family/POA. Questions were solicited and answers provided to the satisfaction of the patient/family/POA.
[2021-08-15 09:46] LABS: Beta HCG Quantitative < 2.39 mIU/ML
[2021-08-15] MEDS: ceFAZolin 2 GM/D5W 50 ML 2 GM/50 ML BAG IVPB (10:00)
[2021-08-15] MEDS: BUPIVACAINE HCL 0.5% PF 30 ML VIAL INFILTRATE (10:35)
--- NOTE | 2021-08-15 11:21 | W.PM.PROC2 ---
Procedure Note - Detailed Date of Procedure 08/15/21 Pre-op Diagnosis acute cholecystitis Post-op Diagnosis same Procedure Performed laparoscopic cholecystectomy Surgeon Paula Whiting MD Anesthesia general Indications 25-year-old female presenting with upper abdominal pain. Workup, including imaging, significant for acute cholecystitis. Findings Acute cholecystitis Description of Procedure The patient was taken to the operating room placed in the supine position. After adequate induction of general anesthesia, the patient was prepped and draped in normal sterile fashion. A time-out was then performed to verify the patient's identity as well as the procedure being performed. I then made a 5 mm incision in the infraumbilical region. Through this, a Veress needle was placed into the peritoneal cavity and CO2 gas was then insufflated. After adequate pneumoperitoneum was achieved, the Veress needle was removed and a 5 mm optiview trocar was placed through this incision under direct visualization. I then placed the laparoscope through this trocar site and under direct visualization placed a further 12 mm subxiphoid port as well as 2 additional 5 mm ports in the right upper abdomen. The gallbladder was then identified and was noted to be inflamed, and distended. I was able to place a grasper at the dome of the gallbladder and this was retracted anterior and cephalad up over the liver. A 2nd retractor was then placed at the infundibulum and retracted laterally, this allowed visualization of the triangle of Calot. I then was able to visualize the cystic duct in its entirety from its proximal insertion into the gallbladder, to its distal junction with the common hepatic/common bile duct junction. At this point, I carefully skeletonized the proximal cystic duct with the [place] dissector. I then clipped and transected the proximal cystic duct. Next I visualized the cystic artery. Again the artery was skeletonized, clipped, and transected. I then used the Bovie cautery to take down the peritoneal attachments of the gallbladder off the liver bed. This was somewhat difficult given the amount of inflammation in the posterior space. Once the gallbladder specimen was completely detached, an endo-pouch was placed through the 12 mm port site. I then placed the gallbladder specimen into the Endo pouch and removed the endo-pouch from the 12 mm port site. Of note, I did have to decompress the gallbladder in order to extract the specimen. The specimen will now be sent to pathology for further review. I then copiously irrigated the right upper quadrant. Some mild oozing was noted in the liver bed and this was controlled with the bovie cautery. I then placed some hemostatic powder in the liver bed. Hemostasis was noted in the liver bed, the clips were noted to be in good position on both the cystic duct stump and the cystic artery stump. No other pathology was noted in the right upper quadrant. I then moved the laparoscope to the subxiphoid port. No iatrogenic injury or other pathology was noted in the lower abdomen. I then closed the 12 mm trocar site under direct visualization using the Kit cone and 0 Vicryl suture. At this point, the abdomen was desufflated and all ports removed. All port sites were then closed with 4.O Monocryl subcuticular sutures. Dermabond was placed on each incision. The patient tolerated the procedure well, was extubated in the operating room postoperative and will be transferred to the recovery room in stable condition Estimated Blood Loss 20 Urine Output 1,200 Drains No Packing No Pathology yes Complications No immediate complications Condition stable Disposition PACU
[2021-08-15] MEDS: fentaNYL CITRATE INJ (*CRX) 100 MCG/2 ML VIAL 25 MCG IV PUSH ×6 (11:31→12:10)
[2021-08-15] MEDS: MORPHINE SULFATE (*CRX) 4 MG/ML INJ IV PUSH (12:56)
[2021-08-15] MEDS: HYDROcodone/acetaminophen (*CRX) 5-325 MG TABLET 1 TAB PO (15:26)
--- NOTE | 2021-08-16 13:14 | PM.DS ---
DS: Admitting Diagnosis Discharge Date 08/15/21 Admitting Diagnosis Acute cholecystitis DS: Discharge Diagnosis Discharge Diagnosis (1) Acute calculous cholecystitis: Code(s): K80.00 - Calculus of gallbladder with acute cholecystitis without obstruction Status: Acute Assessment and Plan: doing well, continue routine postoperative care, prescription sent for p.o. analgesia, follow-up 2 weeks DS: Summary Hospital Course Reason for hospitalization: acute cholecystitis Hospital Course: The patient is a 25-year-old female that presented to the emergency department complaining of severe upper abdominal pain. She reports the symptoms were associated with nausea and vomiting, as well as bloating. Workup in the emergency department, including ultrasound, was significant for acute cholecystitis. Given this the patient was admitted to the surgical service. Upon evaluation, the decision was made for urgent cholecystectomy. On 08/15 the patient was taken to the operating room and laparoscopic cholecystectomy was performed, please see full operative report for details of that procedure. Postoperative, the patient did well and was transferred back to the floor. The patient was able to ambulate without difficulty and her pain was well controlled with p.o. analgesia. She was able to tolerate a bland diet without issue. At this time she will be sent home with instructions for routine postoperative care, as well as p.o. analgesia. She will follow-up with me in 2 weeks. Status at Discharge Functional status at discharge: independent ambulation Overall status at discharge: patient is progressing back to baseline Time Spent with Patient Time attestation: Total time spent providing and/or coordinating discharge services: Time spent: Less than 30 minutes Exam Const: General: cooperative, comfortable and no acute distress Resp: Auscultation: clear to auscultation bilaterally Cardio: Rate: regular rate Rhythm: regular rhythm GI: Inspection: normal to inspection and incision GI Palp: Yes Soft to palpation and No Tenderness to palpation present (GI) DS: Data Data Completed and Pending Pending studies at discharge: Pending at discharge 08/15/21 10:30 Surgical [PTH] Routine Discharge Plan Discharge Attending physician on discharge: Paula Whiting Discharging Clinician: Paula Whiting Anticipated Discharge Date/Time: 08/15/21 15:00 Patient Disposition: Home, Self-Care Activity: may shower, as tolerated and other - see discharge instructions Diet: other - see discharge instructions Wound Care Instructions: other - see discharge instructions Discharge Instructions: DISCHARGE INSTRUCTION SHEET FOR HERNIA, GALLBLADDER AND APPENDIX SURGERIES DR. WHITING PATIENT TO TAKE HOME 1. May shower in 24 hours, no soaking in bath x 2weeks. 2. Call office for: Wound increasingly painful or bleeding Vomiting Fever of greater than 101 degrees 3. If no bowel movement for three days, take 1 oz. (30 ml) Milk of Magnesia or MiraLax 17g 1 to 2 times daily. 4. No heavy lifting > 10-15 pounds x 6 weeks for hernia repairs and 2 weeks for laparoscopic cholecystectomy or appendectomy. 5. No driving for 3 days or while taking narcotic pain medications. 6. Ice to surgical site for 48 hours (30 min on, then 30 min off). 7. Up walking 10-30 minutes three times per day. 8. Resume previous home medications. 9. Follow-up 10-14 days in office for wound check or as previously scheduled. ([phone]) 10. Oral pain medications prescription to be sent to pharmacy. Take Tylenol 500mg every 6 hours and Ibuprofen 600mg every 6 hours for the first 2 days, then as needed. 11. NUTRITION: Start out by drinking fluids and increase your diet as tolerated. If you experience nausea, try dry toast, crackers, and 7-UP. If nausea or vomiting persists, contact your surge
== END 2021-08-15 17:50 | disposition home or self-care (01) ==
LOC: ANHED 16:37 → ANH3MEDSUR 16:53
PROVIDERS: Anesthesiology; Admitting Provider Surgery; Emergency Provider Emergency Medicine; PCP Internal Medicine; Visit Provider Surgery
PROC: 0FT44ZZ Resection of Gallbladder, Percutaneous Endoscopic Approach (ICD-10-PCS; CPT 47562; principal; 2021-08-15 10:00)
DX: K80.10 Calculus of gallbladder with chronic cholecystitis without obstruction (principal); R10.11 Right upper quadrant pain; I10 Essential (primary) hypertension
CPT/HCPCS: 47562; 36415; 76705; 80053; 80076; 81003; 82150; 83690; 84702; 85025; 85027; 86850; 86900; 86901; 88304; 93005; 96361; 96365; 96374; 96375; 96376; 99285; A9270; G0378; J0131; J0690; J1100; J2250; J2270; J2405; J2704; J2710; J3010; J7030; J7120

== ENCOUNTER 2022-08-12 10:32 | Emergency (ER) | payer OTHER, SELFPAY ==
[2022-08-12] VITALS (9 sets, daily range): BP systolic 125–146; BP diastolic 80–94; PULSE 95–149; RESP 12–24; TEMP 37.4; O2SAT 91–100
--- NOTE | ~2022-08-12 | XR_ITS ---
XR thoracic spine 3V 08/12/2022 11:55 Indication: Upper back pain Procedure: 3 views thoracic spine Comparison: No prior studies for comparison. Findings: Vertebral body and disc heights are preserved. Pedicles intact. No fracture or traumatic ma lalignment. There is mild dextroscoliosis. No paraspinal soft tissue abnormality. Surrounding osseous structures are unremarkable. Impression: 1: Mild dextroscoliosis. Reviewed, dictated and finalized at location A. Impression: 1: Mild dextroscoliosis.
--- NOTE | ~2022-08-12 | CT_ITS ---
EXAMINATION: CT abdomen pelvis w con DATE: 08/12/2022 12:54 INDICATION: Sided flank pain TECHNIQUE: Computed tomography (CT) of the abdomen and pelvis was performed with 100 cc Omnipaque 350 intravenous contrast. The dose-length product was 934.51 mGy-cm. Automated exposure control and iter ative reconstruction technique were employed. COMPARISON: No prior studies for comparison. FINDINGS: Heart size is normal. No significant pleural or pericardial effusion. Small umbilical herni a containing nonobstructed small bowel. No bowel obstruction. No free air or free fluid. No significant vascular abnormality. No lymphadenopathy. Fatty infiltration of the liver. The spleen, pancreas, adrenal glands and kidneys are unremarkable. Status post cholecystectomy. No ureteral ston es or hydronephrosis are identified. No acute osseous abnormality. IMPRESSION: 1. No acute abdominal abnormality. Reviewed, dictated and finalized at location A.
--- NOTE | 2022-08-12 10:40 | ED.BACK ---
HPI - Back Pain/Injury General Chief Complaint: Urogenital-Female Stated Complaint: back pain Time Seen by Provider: 08/12/22 10:37 History of Present Illness HPI Narrative: 26-year-old female history of cholecystectomy and recent COVID infection presents to the emergency room with complaints of mid back pain has been present for 10 days. Reports pain is a throbbing pain radiates into her left upper abdomen. Describes pain is similar to when she had cholecystitis. Patient states the pain started when she lunged forward to catch her child who was falling out of her highchair. Patient states that she has been taking Tylenol and ibuprofen intermittently with no relief. Also states that she attempted to take a warm bath with no relief of pain. States the pain is worse when she rotates her trunk and when she laterally bends trunk denies any known injury or trauma. Denies any dysuria or abdominal pain. Denies pain is worse with inspiration. Denies abdominal pain or dysuria. 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 Related Data Home Medications Medication Instructions Recorded Confirmed acetaminophen 325 mg tablet 325 mg PO Q6H PRN Pain 09/07/21 09/08/21 (Tylenol) drospirenone (contraceptive) 4 mg 1 tablet PO DAILY 08/12/22 (28) tablet (Slynd) Allergies Allergy/AdvReac Type Severity Reaction Status Date / Time No Known Allergies Allergy Verified 08/12/22 10:46 Review of Systems Review of Systems: CONSTITUTIONAL: Denies fever, chills, or sweats. EYES: Denies visual changes, redness, or discharge. ENT: Denies rhinorrhea, congestion, sore throat, or otalgia. CARDIOVASCULAR: Denies chest pain, palpitations, or edema. RESPIRATORY: Denies cough or dyspnea. GASTROINTESTINAL: Denies abdominal pain, nausea, vomiting, or diarrhea. GENITOURINARY: Denies dysuria or hematuria. SKIN: Denies rash or itching. MUSCULOSKELETAL: Reports thoracic back pain NEUROLOGIC: Denies headache, numbness, dizziness, or weakness. PSYCHIATRIC: Denies anxiety or depression. [facility] Past Medical History Medical History Cholestasis Diabetes in Ganglion cyst of both wrists Obese Surgical History Surgical History History of laparoscopic cholecystectomy 08/15/21 Family History Family History Grandparent Family history of primary malignant neoplasm of liver Family history of Alzheimer's disease Mother Patient's mother is in good health Social History Social History Smoking status: Never smoker Alcohol intake: current Drinks per week: 4 Substance use: current Substance use type: marijuana Last use: 08/12/21 Spiritual care concerns: No Exam Narrative: GENERAL: Well-appearing, well-nourished, no physical limitations, and in no acute distress. HEAD: Normocephalic, atraumatic. EYES: Conjunctivae normal, PERRLA and EOMI. CHEST: Clear to auscultation. No respiratory distress. No wheezes rales or rhonchi. HEART: Regular rate and rhythm. No murmur heard. Normal peripheral pulses. ABDOMEN: Nondistended, nontender, bowel sounds x4 present BACK: No CVA tenderness; No midline cervical/thoracic/lumbar tenderness, step-offs, bony abnormality; FROM. Tenderness over the superior aspect of the bilateral latissimus dorsi and inferior aspects of the trapezius muscles. Pain elicited with lateral bend and forward flexion. EXTREMITIES: Normal range of motion. No edema. No clubbing or cyanosis SKIN: Warm, dry, no rash. No noted wounds NEURO: No focal deficits. Alert and oriented x3. MAEW. CN's II-XI intact bilaterally, normal gait PSYCH: Cooperative. Normal mood and affect. Course Vital Signs Vital signs: Vit
--- NOTE | 2022-08-12 10:52 | ECG_ITS ---
Measurements Intervals [place] Rate: 122 P: 32 NC: 129 QRS: 20 QRSD: 82 T: 8 QT: 312 QTc: 445 Interpretive Statements SINUS TACHYCARDIA COMPARED TO ECG 08/13/2021 15:46:32 SINUS TACHYCARDIA NOW PRESENT Electronically Signed On 08-12-2022 13:09:03 CDT by Maribel Cuenca M.D.
[2022-08-12 11:08] LABS: Basophils Absolute Auto 0.1 K/mm3 (0.0-0.1); Basophils Percent Auto 0.6 % (0.2-1.2); Eosinophils Percent Auto 0.3 % (0-4.4); Hematocrit 40.8 % (37.0-47.0); Hemoglobin 13.9 g/dL (12.0-15.0); Immature Granulocyte Absolute 0.02 K/mm3 (0.00-0.031); Immature Granulocyte Percent A 0.2 % (0-0.5); Lymphocytes Absolute Auto 3.14 K/mm3 (0.9-3.2); Lymphocytes Percent Auto 35.5 % (18.3-44.2); Mean Corpuscular HGB Conc 34.1 g/dl (32-36); Mean Corpuscular Volume 91.1 fl (80-100); Mean Platelet Volume 10.9 fl (7.4-10.4); Monocytes Absolute Auto 0.5 K/mm3 (0.1-0.6); Monocytes Percent Auto 5.4 % (2.6-8.5); Neutrophils Absolute Auto 5.1 K/mm3 (1.3-6.7); Platelet Count Result 285 k/mm3 (150-375); Red Blood Count 4.48 M/mm3 (4.2-5.4); Red Cell Distribution Width 13.3 % (11.5-14.5); White Blood Count 8.8 K/mm3 (4.5-10.0)
[2022-08-12] MEDS: SODIUM CHLORIDE 0.9% IV 1,000 ML 999 ML IV CONT (11:09)
[2022-08-12 11:18] LABS: Appearance Urine Clear (Clear); Bilirubin Urine Negative (Negative); Blood Urine Negative (Negative); Color Urine Yellow (Yellow); Glucose Urine UA Negative (Negative); Ketones Urine Negative (Negative); Leukocyte Esterase Ur Negative LEU/UL (Negative); Nitrate Urine Negative (Negative); Protein Urine Negative (Negative); Specific Grav Ur 1.015 (1.001-1.035); Urobilinogen Urine 0.2 mg/dL (<2.0)
[2022-08-12 11:25] LABS: Alanine Aminotransferase 30 U/L (6-35); Albumin Level 5.3 g/dL (3.5-5.1); Alkaline Phosphatase 56 U/L (38-126); Anion Gap 14 mmol/L (8-16); Aspartate Amino Transferase 27 U/L (14-36); Bilirubin,Total 0.6 mg/dL (0.2-1.3); Blood Urea Nitrogen 14 mg/dL (7-17); Calcium 9.9 mg/dL (8.4-10.2); Carbon Dioxide 22 mmol/L (22-30); Chloride 102 mmol/L (98-107); Estimated CRCL calculation 108 ml/min; Estimated Glomerular Filt Rate > 60; Glucose 121 mg/dL (65-110); Lipase 85 U/L (23-300); Potassium 3.8 mmol/L (3.4-5.0); Sodium 138 mmol/L (137-145)
[2022-08-12 11:40] LABS: Add Urine Microscopic? NO
[2022-08-12] MEDS: KETOROLAC 30 MG/ML VIAL (*BKC) IV PUSH (12:08)
[2022-08-12] MEDS: methocarbamoL 500 MG TABLET PO (12:08)
[2022-08-12] MEDS: HYDROmorphone HCL INJ (*CRX) 1 MG/ML SYR 0.5 MG IV PUSH (13:49)
== END 2022-08-12 14:05 | disposition home or self-care (01) ==
PROVIDERS: Emergency Provider Nurse Practitioner Family; PCP Internal Medicine
DX: K59.00 Constipation, unspecified (principal); E66.9 Obesity, unspecified; Z68.32 Body mass index [BMI] 32.0-32.9, adult; Z86.16 Personal history of COVID-19; R00.0 Tachycardia, unspecified; M41.9 Scoliosis, unspecified
CPT/HCPCS: 36415; 72072; 74177; 80053; 81003; 81025; 83690; 85025; 93005; 96361; 96374; 96375; 99284; A9270; J1170; J1885; J7030; Q9967

== ENCOUNTER 2022-08-15 05:08 | Emergency (ER) | payer OTHER, SELFPAY ==
[2022-08-15 05:14] VITALS: BP 136/111; PULSE 96; RESP 18; TEMP 36.1; O2SAT 100
[2022-08-15 05:24] VITALS: O2SAT 100
[2022-08-15 05:26] VITALS: BP 168/134; O2SAT 100
[2022-08-15] MEDS: HALOPERIDOL LACTATE 5 MG/ML VIAL 2.5 MG IM (05:36)
[2022-08-15 06:21] VITALS: PULSE 60; RESP 18
[2022-08-15 06:30] VITALS: PULSE 89; RESP 13
[2022-08-15 06:32] LABS: Appearance Urine Clear (Clear); Bilirubin Urine Negative (Negative); Blood Urine Negative (Negative); Color Urine Yellow (Yellow); Glucose Urine UA Negative (Negative); Ketones Urine Negative (Negative); Leukocyte Esterase Ur 1+ LEU/UL (Negative); Nitrate Urine Negative (Negative); Protein Urine Negative (Negative); Specific Grav Ur 1.025 (1.001-1.035); Urobilinogen Urine 0.2 mg/dL (<2.0)
[2022-08-15 06:37] LABS: Bacteria Urine Trace /hpf; Mucus Urine Rare /lpf; Squamous Epithelial Cell Urine Few /hpf (Few); WBC Urine 0-3 /hpf
[2022-08-15] MEDS: diphenhydrAMINE HCl INJ 50 MG/ML VIAL 25 MG IV PUSH (06:51)
[2022-08-15] MEDS: LACTATED RINGERS 1,000 ML 999 ML IV CONT (06:51)
[2022-08-15] MEDS: METOCLOPRAMIDE HCL INJ 10 MG/2 ML VIAL IV PUSH (06:51)
--- NOTE | 2022-08-15 07:01 | ED.NAVMDI ---
HPI - Nausea/Vomiting/Diarrhea General Chief complaint: Nausea/Vomiting/Diarrhea <Tori Chavez MD - Last Filed: 08/15/22 08:18> Stated complaint: Dizziness, N/V <Tori Chavez MD - Last Filed: 08/15/22 08:18> Time Seen by Provider: 08/15/22 05:20 <Tori Chavez MD - Last Filed: 08/15/22 08:18> History of Present Illness HPI Narrative: 26-year-old female presents with sudden onset nausea and vomiting that started yesterday, she had been dealing with some low back pain that is chronic for her which she was seen here several days ago, but now she is having pretty severe nausea and that was the main reason she came in today. She is worried because she is feeling lightheaded. Denies any changes to her back pain, she does not have any abdominal pain, just severe nausea. She does endorse daily use of marijuana. No dysuria. <Tori Chavez MD - Last Filed: 08/15/22 08:18> Related Data Home medications: Home Medications Medication Instructions Recorded Confirmed acetaminophen 325 mg tablet 325 mg PO Q6H PRN Pain 09/07/21 09/08/21 (Tylenol) drospirenone (contraceptive) 4 mg 1 tablet PO DAILY 08/12/22 (28) tablet (Slynd) <Tori Chavez MD - Last Filed: 08/15/22 08:18> Allergies/Adverse reactions: Allergies Allergy/AdvReac Type Severity Reaction Status Date / Time No Known Allergies Allergy Verified 08/12/22 10:46 <Tori Chavez MD - Last Filed: 08/15/22 08:18> Review of Systems Review of Systems: CONST: No fever. HEENT: No sore throat C/V: No chest pain RESP: No cough GI: Reports nausea vomiting : No dysuria. M/S: Low back pain. SKIN: No rash. NEURO: [Lightheadedness without headache or focal numbness or weakness] PSYCH: [No depression] <Tori Chavez MD - Last Filed: 08/15/22 08:18> PMFSH Past Medical History Medical History: Medical History Cholestasis Diabetes in Ganglion cyst of both wrists Obese <Tori Chavez MD - Last Filed: 08/15/22 08:18> Surgical History Surgical History: Surgical History History of laparoscopic cholecystectomy 08/15/21 <Tori Chavez MD - Last Filed: 08/15/22 08:18> Family History Family History: Family History Grandparent Family history of primary malignant neoplasm of liver Family history of Alzheimer's disease Mother Patient's mother is in good health <Tori Chavez MD - Last Filed: 08/15/22 08:18> Social History Social History: Social History Smoking status: Never smoker Alcohol intake: current Drinks per week: 4 Substance use: current Substance use type: marijuana Last use: 08/12/21 Spiritual care concerns: No <Tori Chavez MD - Last Filed: 08/15/22 08:18> Exam Narrative: EXAMINATION OF ORGAN SYSTEMS/BODY AREAS: Constitutional: Vital signs per nursing GENERAL: Actively retching phlegm and screaming HEAD: Normal with no signs of head trauma. EYES: EOMI, conjunctiva normal ENT: Hearing grossly intact LUNGS: Nonlabored breathing. HEART: [Regular rate and rhythm] ABD: [Soft], [nontender to palpation] EXT: Normal range of motion SKIN: [No rashes or lesions.] NEURO: [Alert and oriented x 3. No gross focal sensory or strength deficits.] PSYCH: Normal affect <Tori Chavez MD - Last Filed: 08/15/22 08:18> Course Course Emergency Course: Patient felt improved with treatment. Patient was tolerating p.o. and states that the nausea vomiting is resolved. Patient states she does still have some vertigo. Patient was updated on results of her work-up and does feel comfortable with having discharge and close follow-up. All questions and concerns were addressed. <Phan Morataya MD - Last Filed: 08/15/22 09:50> Vital Signs Vital signs: Vital Signs Temperature 97.
[2022-08-15 07:03] LABS: Basophils Absolute Auto 0.1 K/mm3 (0.0-0.1); Basophils Percent Auto 0.5 % (0.2-1.2); Eosinophils Percent Auto 0.4 % (0-4.4); Hematocrit 40.8 % (37.0-47.0); Hemoglobin 13.5 g/dL (12.0-15.0); Immature Granulocyte Absolute 0.03 K/mm3 (0.00-0.031); Immature Granulocyte Percent A 0.3 % (0-0.5); Lymphocytes Absolute Auto 3.35 K/mm3 (0.9-3.2); Lymphocytes Percent Auto 32.9 % (18.3-44.2); Mean Corpuscular HGB Conc 33.1 g/dl (32-36); Mean Corpuscular Hemoglobin 30.5 pg (26-34); Mean Corpuscular Volume 92.1 fl (80-100); Mean Platelet Volume 11.7 fl (7.4-10.4); Monocytes Absolute Auto 0.6 K/mm3 (0.1-0.6); Monocytes Percent Auto 5.5 % (2.6-8.5); Neutrophils Absolute Auto 6.1 K/mm3 (1.3-6.7); Neutrophils Percent Auto 60.4 % (45.5-73.1); Platelet Count Result 258 k/mm3 (150-375); Red Blood Count 4.43 M/mm3 (4.2-5.4); Red Cell Distribution Width 13.1 % (11.5-14.5); White Blood Count 10.2 K/mm3 (4.5-10.0)
[2022-08-15 07:04] LABS: Add Urine Microscopic? YES
[2022-08-15 07:14] LABS: Alanine Aminotransferase 33 U/L (6-35); Albumin Level 5.1 g/dL (3.5-5.1); Alkaline Phosphatase 55 U/L (38-126); Anion Gap 17 mmol/L (8-16); Aspartate Amino Transferase 31 U/L (14-36); Bilirubin,Total 0.5 mg/dL (0.2-1.3); Blood Urea Nitrogen 19 mg/dL (7-17); Calcium 10.2 mg/dL (8.4-10.2); Carbon Dioxide 21 mmol/L (22-30); Chloride 103 mmol/L (98-107); Estimated CRCL calculation 122 ml/min; Estimated Glomerular Filt Rate > 60; Glucose 125 mg/dL (65-110); Lipase 100 U/L (23-300); Potassium 3.6 mmol/L (3.4-5.0); Sodium 141 mmol/L (137-145)
--- NOTE | 2022-08-15 07:24 | PC.NURSE ---
report from shift supervisor rn. ns infusing without difficulty. family at bedside.
[2022-08-15] MEDS: MECLIZINE HCL 25 MG TABLET PO (09:53)
== END 2022-08-15 10:05 | disposition home or self-care (01) ==
PROVIDERS: Emergency Provider Emergency Medicine; PCP Internal Medicine
DX: R42 Dizziness and giddiness (principal); R11.2 Nausea with vomiting, unspecified; R19.7 Diarrhea, unspecified; E66.9 Obesity, unspecified; Z68.32 Body mass index [BMI] 32.0-32.9, adult
CPT/HCPCS: 36415; 80053; 81001; 81025; 83690; 85025; 96361; 96372; 96374; 96375; 99284; A9270; J1200; J1630; J2765; J7120